=== PATIENT | female | born 1960 | race Caucasian/White ===

== ENCOUNTER 2018-04-29 18:40 | Emergency (ER) | payer MEDICAID, SELFPAY ==
--- NOTE | 2018-04-29 18:20 | RAD_ITS ---
STUDY: X-RAY - RIGHT SHOULDER REASON FOR EXAM: Right shoulder pain, fall. TECHNIQUE: 4 view(s) of the shoulder. COMPARISON: None. FINDINGS: Normal glenohumeral articulation. Status post resection of the distal clavicle. There is a fracture of the anterior acromion. There is an exostosis of the proximal humerus. The soft tissue structures are unremarkable. There are postoperative changes in the right upper lung. RAD/Shoulder min 2 Views IMPRESSION: Fracture of the anterior acromion. Resection of the distal clavicle. Exostosis of the proximal humerus. Electronically Signed: Patrick Bolden MD at 13:17 EDT Tel , Service support ,
--- NOTE | 2018-04-29 18:20 | RAD_ITS ---
STUDY: X-RAY - CERVICAL SPINE REASON FOR EXAM: Female, 58 years old. FALL, NECK PAIN TECHNIQUE: 3 view(s) of the cervical spine were obtained. COMPARISON: None FINDINGS: Normal cervical lordosis. There is minimal multi-level endplate spondylosis. There is multi-level degenerative disc disease with multilevel disc space narrowing. The soft tissue structures are unremarkable. RAD/Cerv Spine 2 or 3 Views IMPRESSION: Minimal degenerative changes of the spine. Electronically Signed: Miguel Aguilar MD at 13:40 EDT Tel , Service support ,
--- NOTE | 2018-04-29 18:40 | DT_ITS ---
This patient was seen during an EMR downtime April 26, 2018 - May 03, 2018. This patient may have a combination of paper and electronic documentation or all paper documentation. All documentation is viewable within the e-chart portion of [facility] for each patient visit.
== END 2018-04-29 20:30 | disposition home or self-care (01) ==
LOC: ED 04-30 07:36
PROVIDERS: Emergency Provider Emergency Medicine
DX: S13.4XXA Sprain of ligaments of cervical spine, initial encounter (principal); S46.911A Strain of unspecified muscle, fascia and tendon at shoulder and upper arm level, right arm, initial encounter; R20.2 Paresthesia of skin; W01.0XXA Fall on same level from slipping, tripping and stumbling without subsequent striking against object, initial encounter; Y93.9 Activity, unspecified; Y92.002 Bathroom of unspecified non-institutional (private) residence as the place of occurrence of the external cause; M06.9 Rheumatoid arthritis, unspecified; G43.909 Migraine, unspecified, not intractable, without status migrainosus; Z79.899 Other long term (current) drug therapy; Z72.0 Tobacco use
CPT/HCPCS: 72040; 73030; 99283; A4216